=== PATIENT | female | born 1995 | race Caucasian/White ===

== ENCOUNTER 2017-01-19 07:39 | Emergency (ER) | payer OTHER ==
[2017-01-19 07:46] VITALS: O2SAT 100
[2017-01-19] MEDS ORDERED: KETOROLAC 30 MG/1 ML SDV IVP ONE (08:09)
[2017-01-19] MEDS ORDERED: NS 1,000 ML IV ONE (08:09)
--- NOTE | 2017-01-19 08:15 | EDPHY ---
H & P Stated Complaint: heavy period dry heaves light headed Source: Patient Exam Limitations: No limitations - Personal History LMP (Females 10-55): Now Current Tetanus/Diphtheria Vaccine: Yes Current Tetanus Diphtheria and Acellular Pertussis (TDAP): Yes - Medical/Surgical History Hx Asthma: No Hx Chronic Respiratory Disease: No Hx Diabetes: No Hx Cardiac Disease: No Hx Renal Disease: No Hx Cirrhosis: No Hx Alcoholism: No Hx HIV/AIDS: No Hx Splenectomy or Spleen Trauma: No Other PMH: pcos - Social History Smoking Status: Never smoked Time Seen by Provider: 01/19/17 08:12 HPI/ROS: HPI: This is a 21-year-old female who presents with Chief Complaint: Heavy menstrual flow Location:pelvic Quality: Heavy menstrual flow Duration: Starting yesterday morning Signs and Symptoms: + nausea, no abdominal pain only describes as lower abdominal cramping, no vomiting, no diarrhea, no dysuria, no fever, no vaginal discharge, no lower back pain Timing: sudden Severity: Moderate Context: Medical history of polycystic ovary syndrome; periods are normally irregular nature; last 5-7 days. Reports last heavy menstruation like this when she was 17 years old. Not on any hormone replacement therapy or contraception. Reports soaking through heavy pads every 1 hour since yesterday at 10:00 a.m. OBN is [facility]; last seen in July. Modifying Factors: Comment: ROS: Constitutional: No fever, no chills, no weight loss Eyes: No blurred vision Respiratory: No shortness of breath, no cough Cardiovascular: No chest pain Gastrointestinal: No nausea, no vomiting no diarrhea Genitourinary: No dysuria Extremities: No myalgias Neurologic: No weakness, no numbness Skin: No rashes Hematologic: No bruising, no bleeding MEDICAL/SURGICAL/SOCIAL HISTORY: Generally healthy. Denies surgical history. (Maia Milner) - Physical Exam Exam: CONSTITUTIONAL: Well-appearing young adult female, awake and alert, no obvious distress HEENT: Atraumatic and normocephalic, PERRL, EOMI. Tympanic membranes clear. Oropharynx clear, no exudate and moist pink mucosa. Airway patent. No lymphadenopathy. No meningismus. Cardiovascular: Normal S1/S2, regular rate, regular rhythm, without murmur rub or gallop. PULMONARY/CHEST: Symmetrical and nontender. Clear to auscultation bilaterally Good air movement. No accessory muscle usage. ABDOMEN: Soft, nondistended, mild nonspecific lower abdominal tenderness, no rebound, no guarding, no peritoneal signs, no masses or organomegaly. No CVAT. Bowel sounds heard all 4 quadrants. EXTREMITIES: 2/2 pulses, no deformities, no clubbing, no cyanosis or edema. NEUROLOGICAL: no focal neuro deficits. GCS 15. SKIN: Warm and dry, no erythema. no rash. Good capillary refill. (Maia Milner) Constitutional: Initial Vital Signs Temperature (C) 36.6 C 01/19/17 07:44 Heart Rate 82 01/19/17 07:44 Respiratory Rate 16 01/19/17 07:44 Blood Pressure 106/62 01/19/17 07:44 O2 Sat (%) 100 01/19/17 07:44 O2 Delivery Mode Room Air Allergies/Adverse Reactions: No Known Allergies Allergy (Unverified 01/19/17 07:46) Medical Decision Making - Diagnostics Imaging Results: Imaging Impressions Pelvic/Renal Ultrasound 01/19/17 08:10 Impression: 1. Complex blood products suspected in the lower uterine segment near the endocervical canal. 2. Otherwise, normal-appearing uterus and endometrium. 3. Increased number of follicles associated with each ovary. This could represent normal variation for this age versus possibility of polycystic ovaries. The ovaries are not enlarged. Findings discussed with Maia Milner PAC at 9:20 hour, 01/19/2017. ED Course/Re-evaluation: Labs, qualitative HCG, urinalysis, pelvic ultrasound, IV fluids, IV medications ordered Hemodynamically stable. Given 1 L of normal saline and IV Toradol 30 mg H/H 21.8/38.2; stable Called by radiologist ultrasound shows small cyst on the ovaries normal in size ; no ovarian rupture; no ovarian torsion. offered patient hormonal replacement with estrogen and progesterone for heavy menstrual bleeding. Patient politely declined as she does not like the side effects she experience in the past. She does have oral contraceptive pills at home that she can take if she does decide. No signs of severe uncontrolled hemorrhage/symptomatic anemia/ovarian torsion. (Maia Milner) Differential Diagnosis: Differential diagnosis includes but is not limited to coagulopathy, dysfunctional uterine bleeding, endometriosis, fibroids, vaginitis. (Maia Milner) Other Provider: PHYSICIAN DOCUMENTATION: The patient was evaluated and managed by the Physician Nurse First Assist and myself. I have reviewed the chart and agree with the findings and plan of care as documented. In addition, I examined the patient myself at 850. History confirmed as feeling lightheaded and dizzy today with vaginal bleeding since yesterday. Physical findings as follows: Abdomen soft nontender. She describes feeling dizzy lightheaded and nausea in the bathroom today while changing a pad, sounds more vasovagal by history. Plan to check hematocrit and ultrasound. She has local OBGYN follow[place]up in [place]. I am the secondary supervising physician. (Kleber Garnett) - Data Points Laboratory Results: Laboratory Results 01/19/17 08:05 01/19/17 08:05 01/19/17 01/19/17 01/19/17 08:05 08:05 08:05 WBC 8.45 10^3/uL 10^3/uL (3.80-9.50) RBC 3.84 10^6/uL L 10^6/uL (4.18-5.33) Hgb 12.8 g/dL g/dL (12.6-16.3) Hct 38.2 % % (38.0-47.0) MCV 99.5 fL fL (81.5-99.8) MCH 33.3 pg pg (27.9-34.1) MCHC 33.5 g/dL g/dL (32.4-36.7) RDW 13.2 % % (11.5-15.2) Plt Count 183 10^3/uL 10^3/uL (150-400) MPV 11.3 fL fL (8.7-11.7) Neut % (Auto) 66.1 % % (39.3-74.2) Lymph % (Auto) 25.4 % % (15.0-45.0) Cocke % (Auto) 7.0 % % (4.5-13.0) Eos % (Auto) 0.6 % % (0.6-7.6) Baso % (Auto) 0.5 % % (0.3-1.7) Nucleat RBC Rel Count 0.0 % % (0.0-0.2) Absolute Neuts (auto) 5.59 10^3/uL 10^3/uL (1.70-6.50) Absolute Lymphs (auto) 2.15 10^3/uL 10^3/uL (1.00-3.00) Absolute Monos (auto) 0.59 10^3/uL 10^3/uL (0.30-0.80) Absolute Eos (auto) 0.05 10^3/uL 10^3/uL (0.03-0.40) Absolute Basos (auto) 0.04 10^3/uL 10^3/uL (0.02-0.10) Absolute Nucleated RBC 0.00 10^3/uL 10^3/uL (0-0.01) Immature Gran % 0.4 % % (0.0-1.1) Immature Gran # 0.03 10^3/uL 10^3/uL (0.00-0.10) Sodium 144 mEq/L mEq/L (134-144) Potassium 4.1 mEq/L mEq/L (3.5-5.2) Chloride 108 mEq/L mEq/L (97-110) Carbon Dioxide 23 mEq/l mEq/l (22-31) Anion Gap 13 mEq/L mEq/L (8-16) BUN 10 mg/dL mg/dL (7-23) Creatinine 0.7 mg/dL mg/dL (0.6-1.0) Estimated GFR > 60 Glucose 106 mg/dL H mg/dL (70-100) Calcium 9.6 mg/dL mg/dL (8.5-10.4) Beta HCG, Qual NEGATIVE Medications Given: Discontinued Medications Sodium Chloride (Ns) 1,000 mls @ 0 mls/hr IV ONCE ONE; Wide Open PRN Reason: Protocol Stop: 01/19/17 08:10 Last Admin: 01/19/17 08:24 Dose: 1,000 mls Ketorolac Tromethamine (Toradol) 30 mg IVP EDNOW ONE Stop: 01/19/17 08:10 Last Admin: 01/19/17 08:23 Dose: 30 mg Departure - Departure Disposition: Home, Routine, Self-Care Clinical Impression: Dysfunctional uterine bleeding Menorrhagia Qualifiers: Menorrahagia type: with onset of menstrual periods Qualified Code(s): N92.2 - Excessive menstruation at puberty Condition: Good Instructions: Dysfunctional Uterine Bleeding (ED) Additional Instructions: You can start to take your oral contraceptive pills that you have at home until you are seen by [facility] this week. Call [facility] Friday for an appointment in the next few days. Rest as much as possible, drink plenty of fluids, take ibuprofen 6-800 mg every 6-8 hours as needed for pain. Referrals: DR SAUNDRA [Other] - As per Instructions Anali Arce PA [Physician Nurse First Assist] - As per Instructions Stand Alone Forms: Work Excuse
[2017-01-19 08:16] LABS: % IMMATURE GRANULYOCYTES 0.4 % (0.0-1.1); ABSOLUTE IMMATURE GRANULOCYTES 0.03 10^3/uL (0.00-0.10); ADD DIFF? NO; ADD MORPH? NO; ADD SCAN? NO; ATYPICAL LYMPHOCYTE FLAG 30 (0-99); FRAGMENT RBC FLAG 0 (0-99); HEMATOCRIT 38.2 % (38.0-47.0); HEMOGLOBIN 12.8 g/dL (12.6-16.3); LEFT SHIFT FLG 0 (0-99); LIPEMIA HEMOLYSIS FLAG 80 (0-99); MEAN CELL HEMOGLOBIN 33.3 pg (27.9-34.1); MEAN CELL HEMOGLOBIN CONCENTR. 33.5 g/dL (32.4-36.7); MEAN CELL VOLUME 99.5 fL (81.5-99.8); MEAN PLATELET VOLUME 11.3 fL (8.7-11.7); PLATELET CLUMPS FLAG 0 (0-99); PLATELET COUNT 183 10^3/uL (150-400); RED BLOOD CELL COUNT 3.84 10^6/uL (4.18-5.33); RED CELL DISTRIBUTION WIDTH 13.2 % (11.5-15.2)
[2017-01-19 08:31] LABS: ANION GAP 13 mEq/L (8-16); CALCIUM 9.6 mg/dL (8.5-10.4); CARBON DIOXIDE 23 mEq/l (22-31); CHLORIDE 108 mEq/L (97-110); CREATININE 0.7 mg/dL (0.6-1.0); GLOMERULAR FILTRATION RATE > 60; GLUCOSE 106 mg/dL (70-100); POTASSIUM 4.1 mEq/L (3.5-5.2); SODIUM 144 mEq/L (134-144)
[2017-01-19 09:34] VITALS: BP 123/81; PULSE 63; RESP 18
[2017-01-19 10:00] VITALS: TEMP 98.2
[2017-01-20] MEDS ORDERED: BUPIVACAINE 0.25% 30 ML SDV ONE (11:12)
[2017-01-20] MEDS ORDERED: BUPIVACAINE/EPI 0.5% 30 ML SDV ONE (11:32)
[2017-01-20] MEDS ORDERED: fentaNYL 100 MCG/2 ML INJ ONE (11:36)
[2017-01-20] MEDS ORDERED: PROPOFOL 200 MG/20 ML VIAL ONE (11:36)
[2017-01-20] MEDS ORDERED: DEXAMETHASONE 4 MG/ML VIAL ONE ×2 (11:37)
[2017-01-20] MEDS ORDERED: ONDANSETRON 4 MG/2 ML VIAL ONE (11:37)
[2017-01-20] MEDS ORDERED: LIDOCAINE 2% JELLY 5 ML TUBE ONE (11:37)
== END 2017-01-19 09:59 | disposition home or self-care (01) ==
DX: R10.30 Lower abdominal pain, unspecified (principal); N92.1 Excessive and frequent menstruation with irregular cycle; E86.9 Volume depletion, unspecified
CPT/HCPCS: 96374; J1100; J1885; J2405; J2704; J3010

== ENCOUNTER 2017-01-20 08:41 | Day surgery (SDC) | payer OTHER ==
[2017-01-20 08:52] VITALS: TEMP 98.1
[2017-01-20] MEDS ORDERED: NS 1,000 ML IV ONE (08:55)
[2017-01-20 09:00] LABS: % IMMATURE GRANULYOCYTES 0.8 % (0.0-1.1); ABSOLUTE IMMATURE GRANULOCYTES 0.11 10^3/uL (0.00-0.10); ADD DIFF? NO; ADD MORPH? NO; ADD SCAN? NO; ATYPICAL LYMPHOCYTE FLAG 20 (0-99); FRAGMENT RBC FLAG 0 (0-99); HEMATOCRIT 23.2 % (38.0-47.0); HEMOGLOBIN 7.5 g/dL (12.6-16.3); LEFT SHIFT FLG 10 (0-99); LIPEMIA HEMOLYSIS FLAG 80 (0-99); MEAN CELL HEMOGLOBIN 33.3 pg (27.9-34.1); MEAN CELL HEMOGLOBIN CONCENTR. 32.3 g/dL (32.4-36.7); MEAN CELL VOLUME 103.1 fL (81.5-99.8); PLATELET CLUMPS FLAG 0 (0-99); PLATELET COUNT 205 10^3/uL (150-400); RED BLOOD CELL COUNT 2.25 10^6/uL (4.18-5.33); RED CELL DISTRIBUTION WIDTH 13.1 % (11.5-15.2)
[2017-01-20] MEDS ORDERED: TRANEXAMIC ACID 1,000 MG in NS 500 ML IV ONE (09:17)
[2017-01-20] MEDS ORDERED: TRANEXAMIC ACID 1,000 MG in NS 100 ML IV ONE (09:17)
--- NOTE | 2017-01-20 09:31 | EDPHY ---
H & P Stated Complaint: vaginal bleeding Source: Patient Exam Limitations: No limitations - Personal History LMP (Females 10-55): Now - Medical/Surgical History Hx Asthma: No Hx Chronic Respiratory Disease: No Hx Diabetes: No Hx Cardiac Disease: No Hx Renal Disease: No Hx Cirrhosis: No Hx Alcoholism: No Hx HIV/AIDS: No Hx Splenectomy or Spleen Trauma: No Other PMH: pcos - Social History Smoking Status: Never smoked Time Seen by Provider: 01/20/17 08:59 HPI/ROS: CHIEF COMPLAINT: syncope, vaginal bleeding HISTORY OF PRESENT ILLNESS: 21-year-old female presents emergency department after for heavy vaginal bleeding, weakness and 4-5 syncopal episodes since last night. Patient started with vaginal bleeding during intercourse 2 nights ago. She reports passing large lemon size clots and is bleeding through more than 1 pad per hour. Pt was seen in the emergency department yesterday morning, had a hgb of 12 and hct of 38. Pelvic ultrasound yesterday showed complex blood products suspected in lower uterine segment, normal uterus and endometrium, Increased follicles with both ovaries. Pt reports nausea, vomiting, weakness, shortness of breath and multiple witnessed and unwitnessed syncopal episodes. Pt has a history of polycystic ovarian syndrome with irregular periods. Last very heavy period was at age 17. REVIEW OF SYSTEMS: A comprehensive 10 point review of systems is otherwise negative aside from elements mentioned in the history of present illness. (Monik Franco) - Physical Exam Exam: Physical Exam Gen: Alert and Oriented, pale HEENT: PERRL, dry mucous membranes NECK: no meningismus CV: Tachycardic rate and regular rhythm PULM: CTAB, no wheezes ABDOMEN: soft, suprapubic tenderness to palpation, BS present Pelvic: os closed, no blood from os. Large posterior vaginal laceration lateral and under cervix from 9 oclock position to 5oclock, with large clots removed and bleeding present. BACK: No CVA tenderness NEURO: Neurologically grossly intact EXTREMITIES: normal appearing SKIN: no rash or break in skin on exposed skin PSYCH: answers questions appropriately. (Monik Franco) Constitutional: Initial Vital Signs Temperature (C) 36.7 C 01/20/17 08:51 Heart Rate 112 H 01/20/17 08:51 Respiratory Rate 18 01/20/17 08:51 Blood Pressure 89/77 L 01/20/17 08:51 O2 Sat (%) 96 01/20/17 08:51 O2 Delivery Mode Room Air Allergies/Adverse Reactions: No Known Allergies Allergy (Verified 01/20/17 09:02) Home Medications: Medication Instructions Recorded Iron Polysacch/Iron Heme Polyp 28 mg PO TID #90 tab 01/20/17 [Bifera] traMADol [Ultram 50 mg (*)] 50 mg PO Q6HRS PRN #30 tab 01/20/17 Medical Decision Making ED Course/Re-evaluation: I have discussed and examined this patient with Monik Franco. This patient will require TXA. She has dropped her H&H considerably since yesterday. We will type and cross her for 2 units but hold transfusion due to the fact that she is young and not exhibiting any untoward symptoms from low blood plan at this time. Regional Forester will most likely take her to the operating room for exam under anesthesia and/or further procedures to decrease her bleeding. (Remy Hannon) IV established, cbc, chemistry panel obtained. Hemoglobin and hematocrit down to 7.2 and 23 from 12 and 38 yesterday. 2nd IV established, patient is typed and crossed for 2 units that are held. TXA ordered. 1030- Dr. Yost aware of patient. Pelvic exam preformed and shows a large intravaginal laceration. Pt will go to the OR. TXA transfusing. 2 large bore IV's in place. 1 liter normal saline in. BP 98/62, HR 100. Pt alert and oriented. Pelvic exam shows a large posterior vaginal laceration. Pt awake and alert. Plan to go to OR. (Monik Franco) - Data Points Laboratory Results: Laboratory Results 01/20/17 Unknown 01/20/17 01/20/17 Unknown 09:30 WBC 13.10 10^3/uL H 10^3/uL (3.80-9.50) RBC 2.25 10^6/uL L 10^6/uL (4.18-5.33) Hgb 7.5 g/dL L g/dL (12.6-16.3) Hct 23.2 % L D % (38.0-47.0) MCV 103.1 fL H fL (81.5-99.8) MCH 33.3 pg pg (27.9-34.1) MCHC 32.3 g/dL L g/dL (32.4-36.7) RDW 13.1 % % (11.5-15.2) Plt Count 205 10^3/uL 10^3/uL (150-400) MPV 12.0 fL H fL (8.7-11.7) Neut % (Auto) 63.1 % % (39.3-74.2) Lymph % (Auto) 31.3 % % (15.0-45.0) Hyde % (Auto) 4.4 % L % (4.5-13.0) Eos % (Auto) 0.2 % L % (0.6-7.6) Baso % (Auto) 0.2 % L % (0.3-1.7) Nucleat RBC Rel Count 0.0 % % (0.0-0.2) Absolute Neuts (auto) 8.26 10^3/uL H 10^3/uL (1.70-6.50) Absolute Lymphs (auto) 4.10 10^3/uL H 10^3/uL (1.00-3.00) Absolute Monos (auto) 0.58 10^3/uL 10^3/uL (0.30-0.80) Absolute Eos (auto) 0.02 10^3/uL L 10^3/uL (0.03-0.40) Absolute Basos (auto) 0.03 10^3/uL 10^3/uL (0.02-0.10) Absolute Nucleated RBC 0.00 10^3/uL 10^3/uL (0-0.01) Immature Gran % 0.8 % % (0.0-1.1) Immature Gran # 0.11 10^3/uL H 10^3/uL (0.00-0.10) Patient ABO/Rh O NEGATIVE Antibody Screen NEGATIVE Crossmatch IS Only See Detail Medications Given: Tranexamic Acid 1,000 mg/ (Sodium Chloride) 510 mls @ 63.75 mls/hr IV ONCE ONE Stop: 01/20/17 17:16 Last Admin: 01/20/17 10:34 Dose: 510 mls Tramadol HCl (Ultram) 50 mg PO Q6 PRN PRN Reason: Pain, Moderate Able to Take PO Stop: 07/19/17 14:34 Last Admin: 01/20/17 14:51 Dose: 50 mg Discontinued Medications Acetaminophen (Tylenol) 1,000 mg PO EDNOW ONE Stop: 01/20/17 10:19 Last Admin: 01/20/17 10:30 Dose: 1,000 mg Sodium Chloride (Ns) 1,000 mls @ 0 mls/hr IV ONCE ONE PRN Reason: Wide Open Stop: 01/20/17 08:56 Last Admin: 01/20/17 09:00 Dose: 1,000 mls Tranexamic Acid 1,000 mg/ (Sodium Chloride) 110 mls @ 660 mls/hr IV ONCE ONE Stop: 01/20/17 09:26 Last Admin: 01/20/17 09:58 Dose: 110 mls Ondansetron HCl (Zofran) 4 mg IVP EDNOW ONE Stop: 01/20/17 10:33 Last Admin: 01/20/17 10:34 Dose: 4 mg Departure - Departure Disposition: To OP Cath/Surgery Clinical Impression: Vaginal laceration Qualifiers: Encounter type: initial encounter Qualified Code(s): S31.41XA - Laceration without foreign body of vagina and vulva, initial encounter Condition: Fair
[2017-01-20] MEDS ORDERED: ACETAMINOPHEN 500 MG TAB PO ONE (10:18)
[2017-01-20] MEDS ORDERED: ONDANSETRON 4 MG/2 ML VIAL IVP ONE (10:32)
[2017-01-20 11:09] VITALS: PULSE 122
[2017-01-20] MEDS ORDERED: CEFAZOLIN 2 GM/DEXTROSE/100 ML BAG IV ONE (11:30)
--- NOTE | 2017-01-20 12:40 | GHP ---
[f rep st] PREOP HISTORY AND PHYSICAL DATE OF ADMISSION: 01/20/2017 ADMITTING DIAGNOSIS: Heavy vaginal bleeding, syncopal episode, with a vaginal laceration. HISTORY OF PRESENT ILLNESS: The patient is a 21-year-old, 0, who presented to the emergency department first on 01/19/2017 and again on 01/20/2017 complaining of heavy vaginal bleeding. She re ports having intercourse for the first time in approximately a year. It was unprotected intercourse without foreign objects, and after intercourse, she started having heavy vaginal bleeding. She was p assing lemon sized clots and having some syncopal episodes. When she first presented to the emergenc y department, her hematocrit was stable at hemoglobin 12.8 and hematocrit 38.2. She had a pelvic ult rasound that revealed a normal uterus, endometrium 5-6 mm. Ovaries appeared to be polycystic but oth erwise normal, and she was discharged home. Patient, over the course of the day and the night, kyara nued to pass lemon size clots and have 4-5 syncopal episodes where she passed out and hit her head. She re-presented to the emergency department this morning as a result of heavy bleeding, and her juma tocrit had dropped to 7.5 and 23.2. Upon exam, the patient has a vaginal laceration in the posterior wall of her vagina from approximately 5 o'clock to 9 o'clock, and this is heavily bleeding. It is u nclear if the uterus is bleeding as well. Because the patient is hypotensive, tachycardic, and has e xtensively dropped her hematocrit, I am taking her emergently to the operating room for a vaginal lac eration repair, possible D and C. She may possibly need a blood transfusion. PAST MEDICAL HISTORY: Patient has no significant past medical history. PAST SURGICAL HISTORY: Only significant for wisdom teeth extraction. PAST OBSTETRICAL HISTORY: None. She has never been , and she has a negative test in the ER. PAST GYNECOLOGICAL HISTORY: She reports a normal menstrual triad. She has been on oral contraceptiv e pills in the past to control her PCOS. She has irregular cycles, has for years, and can go as long as 90 days between cycles. She is unsure of her last menstrual period but knows it was within the l ast month, and her cycles have been better recently. This was unprotected intercourse just with the withdrawal method. The patient declines hormonal methods of control because she prefers to be "natural." ALLERGIES: She has no known drug allergies. MEDICATIONS: She is on no current medication. FAMILY HISTORY: Noncontributory. SOCIAL HISTORY: She is a student. She denies tobacco. Alcohol 1-2 times a week. Occasional mariju karoline. She is not in a current relationship. OBJECTIVE: VITAL SIGNS: Right now blood pressure is 92/58. Pulse is 122. GENERAL: She is a pale- appearing female in no acute distress. LUNGS: Clear to auscultation bilaterally. HEART: Tachy, re gular rate and rhythm. ABDOMEN: Soft, nontender, nondistended. Normal bowel sounds. GENITOURINARY : Pelvic exam will be performed in the operating room. ASSESSMENT AND PLAN: 21-year-old, 0, with significant vaginal hemorrhage due to a vaginal la ceration for an operative vaginal laceration repair, possible D and C. She was consented for the pro cedure. She understood the risks and benefits and will proceed at this time. /[id number]/MODL
[2017-01-20] MEDS ORDERED: traMADol 50 MG TAB PO PRN (14:35)
--- NOTE | 2017-01-20 14:45 | GOP ---
[f rep st] OPERATIVE REPORT DATE OF OPERATION: 01/20/2017 SURGEON: Mindy Yost MD PREOPERATIVE DIAGNOSIS: 1. Severe vaginal bleeding. 2. Vaginal laceration. 3. Syncope. POSTOPERATIVE DIAGNOSIS: Vaginal laceration. PROCEDURE PERFORMED: FINDINGS: ESTIMATED BLOOD LOSS: Less than 5 cc. DESCRIPTION OF PROCEDURE: The patient was taken to the operating room, where she was placed under ge neral anesthesia without difficulty. She was prepped and draped in the dorsal lithotomy position and a [place]a catheter was placed in her bladder. After a WHO time-out was performed, an open-sided specu lum was placed in the vagina. With visualization, an approximately 7- 8 cm laceration was seen, star ting from approximately 5 o'clock extending to 9 o'clock along the posterior wall of the vagina, abou t 0.5 cm from her from her cervix. We used the Breisky retractors as well as a right-angle retractor , and I grasped the apex of the laceration at the 5 o'clock position, and repaired the laceration in a running, locked suture with 2-0 Vicryl without difficulty. Hemostasis was obtained. There was darryl y little blood loss during the procedure, less than 5 cc. The patient has approximately lost 1000 cc or more of bleeding with the calculation based on her drop in hematocrit. The retractors were remov ed. The vagina was irrigated. There was no further bleeding. The patient went to the recovery room in good condition. Sponge, lap, needle, and instrument counts were correct x2. HISTORY OF PRESENT ILLNESS: The patient 21-year-old 0, who presented complaining of severe v aginal bleeding after intercourse on Friday night. She was initially evaluated in the emergency de partment, and found to have a hematocrit of 38, a normal ultrasound, and was discharged home. She co ntinued to have severe heavy vaginal bleeding, passing large clots and having 4-5 syncopal episodes. She re-presented on the morning of the and was found to have a hematocrit of 23. Upon examinat ion in the Emergency Department, she was seen to have a vaginal laceration extending from 5 o'clock t o 9 o'clock in the posterior wall of her vagina, high toward her cervix, and this was the source of h er bleeding. I consented her for the procedure of a vaginal laceration repair and possible blood tra nsfusion. She understood the risks and benefits, the risks including bleeding, infection, damage to the vagina and cervix, and possible need for a blood transfusion. She understood these risks and ruben efits and agreed to proceed. URINE OUTPUT: 300 cc. FLUIDS REPLACED: 500 cc. ANTIBIOTICS: The patient did get 1 dose of IV Ancef preop. /[id number]/MODL
[2017-01-20 16:36] VITALS: BP 109/59; RESP 10
[2017-01-20 16:37] VITALS: O2SAT 98
== END 2017-01-20 16:40 | disposition home or self-care (01) ==
LOC: EDUNIT# → FSGY 11:14
PROVIDERS: ATTEND Obstetrics & Gynecology
PROC: 0UQG7ZZ Repair Vagina, Via Natural or Artificial Opening (ICD-10-PCS; principal; 2017-01-20 11:15)
DX: S31.41XA Laceration without foreign body of vagina and vulva, initial encounter (principal); F12.90 Cannabis use, unspecified, uncomplicated; X58.XXXA Exposure to other specified factors, initial encounter
CPT/HCPCS: 96365; 96374; J0690; J2405

== ENCOUNTER 2018-07-22 11:20 | Emergency (ER) | payer OTHER ==
[2018-07-22 20:00] VITALS: BP 102/64
== END 2018-07-22 14:00 | disposition home or self-care (01) ==
DX: R10.9 Unspecified abdominal pain (principal)